=== PATIENT | male | born 1970 | race Caucasian/White ===

== ENCOUNTER → 2016-12-19 | Outpatient (CLI) | payer MEDICARE, OTHER ==
--- NOTE | 2016-12-19 15:19 | PN ---
DATE OF SERVICE: 12/19/2016 A 46-year-old gentleman who has been followed in the Sleep Center for treatment of obstructive sleep apnea-hypopnea syndrome. Patient brought his BiPAP unit with him so I checked the unit. He continued to use his equipment every night, usage from the machine is 30/30 nights for more than 4 hours. Subsequently 100% compliance with treatment. At the same time, sometimes patient feels that this it is not enough pressure in the machine. He significantly increased his weight since previous titration from 369 pounds up to 404 pounds today. Pressure in his machine is 21/17 cm of water. This is the highest BiPAP pressure which has been tried during titration in 2014. [place] Sleepiness Scale significantly increased today to 13. MEDICATIONS: Metoprolol, Januvia, atorvastatin, isosorbide, ibuprofen, aspirin, Ventolin, hydrocodone. During physical exam, a 46-year-old gentleman without distress. BP 129/66, HR 64, RR 16. Height 5, 9. Weight 404. BMI 59.6. Temperature 97.7. Oxygen saturation at room air 98%. Extremely low position of soft palate. ABDOMEN: Obese. EXTREMITIES: 1 to 2+ bilateral ankle edema. IMPRESSION: 1. Extremely severe obstructive sleep apnea-hypopnea syndrome. Apnea-hypopnea index 71.3 with oxygen desaturation to 75.2% REM sleep. Patient is on treatment with BiPAP 21/17 cm of water and increase his weight since titration on around 40 pounds. Sometimes he feels that it is not enough pressure in his machine. He feels sleepy during the day. [place] Sleepiness Scale is 13; 100% compliance with treatment. 2. Obesity, body mass index of 59.6. 3. Asthma. 4. Coronary artery disease, status post stent insertion. 5. Hyperlipidemia. 6. Back problem. 7. Status post back surgery. 8. Swelling of legs. PLAN: 1. Repeat BiPAP titration for re-evaluation of effective BiPAP pressure at the present time. Patient is on the high range BiPAP pressure 21/17, but sometimes feels that pressure is not enough and again he increased his weight significantly. 2. Aggressive losing weight program. 3. Sleep hygiene with regular time in bed for at least 8 hours. 4. No driving if feeling any sleepiness. 5. Prescription for all necessary BiPAP supplies, including mask, tube, filters. Thank you very much for allowing me to participate in the management your patient. Sincerely, Julian Painting MD, PhD, FAASM Diplomat of [employer], Sleep Medicine Board by [employer] Fiber Design Engineer of [facility] [place]
== END ==
LOC: SLEEP 13:28
PROVIDERS: ATTEND Internal Medicine
DX: G47.33 Obstructive sleep apnea (adult) (pediatric) (principal); E66.9 Obesity, unspecified; J45.909 Unspecified asthma, uncomplicated; I25.10 Atherosclerotic heart disease of native coronary artery without angina pectoris; Z95.5 Presence of coronary angioplasty implant and graft; Z99.89 Dependence on other enabling machines and devices; Z68.43 Body mass index [BMI] 50.0-59.9, adult; Z79.82 Long term (current) use of aspirin; Z79.899 Other long term (current) drug therapy

== ENCOUNTER → 2017-03-13 | Outpatient (CLI) | payer MEDICARE, OTHER ==
--- NOTE | 2017-03-13 23:16 | PN ---
DATE OF SERVICE: 03/13/2017 This patient is a 46-year-old gentleman who has been followed in the sleep center for treatment of obstructive sleep apnea/hypopnea syndrome. Recently the patient had BiPAP titration, and after that he received a new BiPAP machine. He came for a follow-up visit to check his treatment with that unit. He is able to use the machine every night for the whole night. Sometimes he has a leak from his mask and sometimes he does not feel enough pressure in his mask when he puts the mask on. I checked his BiPAP machine. BiPAP pressure is 21/17 cm of water. Usage is 30 out of 30 nights for more than 4 hours; average 7.8 hours. Leak is high at 71 L/ minute. At the same time, apnea/hypopnea index is only 0.2, which indicates perfect breathing. [place] Sleepiness Scale today is 13. MEDICATIONS: 1. Metoprolol. 2. Januvia. 3. Atorvastatin. 4. Isosorbide. 5. Ibuprofen. 6. Aspirin. 7. Ventolin. 8. Hydrocodone. PHYSICAL EXAM: The patient is a pleasant 46-year-old gentleman without distress, using a wheelchair. VITAL SIGNS: Blood pressure 121/98, heart rate 78, respiratory rate 16. Weight 410. Temperature 97.8. Oxygen saturation at room air 96%. GENERAL: A pleasant patient without distress. HEENT: PERRLA. EOMI. Evaluation of oropharynx showed tongue protrudes midline. Extremely low position of soft palate. NECK: Supple. No JVD. Thyroid is not palpable. LUNGS: Clear to percussion and to auscultation. Good air exchange. No wheezing or rhonchi. HEART: S1, S2 regular. No murmurs, gallops or rubs. ABDOMEN: Obese. EXTREMITIES: One plus ankle edema. PRESSURE SUPERVISOR: Awake, alert and oriented x3. There is no fasciculation or atrophy noted. No focal deficits observed. IMPRESSION: 1. Obstructive sleep apnea/hypopnea syndrome. Patient demonstrated 100% compliance with treatment, benefitting from treatment with BiPAP. Normal respiration with the BiPAP. Leak from the mask, though, is significant. 2. Obesity. 3. Asthma. 4. Coronary artery disease, status post stent insertion. 5. Hyperlipidemia. 6. Back problems. 7. Status post back surgery. 8. Swelling of the legs. 9. Very minimal periodic limb movements. PLAN: 1. Continue treatment with BiPAP every night for the while night with the same pressure. 2. Aggressive losing-weight program. 3. We will try AmaraView full-face mask. 4. Sleep hygiene with regular time in bed for at least 8 hours. 5. No driving if feeling any sleepiness. Thank you very much for allowing me to participate in the management of your patient. Sincerely, Julian Painting. , PhD, FAASM. Diplomat of [employer], Sleep Medicine Board by [employer] of Internal Medicine Director Corporate of [facility] [place] [facility]
== END | disposition home or self-care (01) ==
LOC: SLEEP 14:37
PROVIDERS: ATTEND Internal Medicine
DX: G47.33 Obstructive sleep apnea (adult) (pediatric) (principal); E66.9 Obesity, unspecified; J45.909 Unspecified asthma, uncomplicated; I25.10 Atherosclerotic heart disease of native coronary artery without angina pectoris; E78.5 Hyperlipidemia, unspecified; M79.89 Other specified soft tissue disorders; G47.61 Periodic limb movement disorder

== ENCOUNTER → 2017-06-26 | Outpatient (CLI) | payer MEDICARE, OTHER ==
[2017-06-26 11:14] LABS: Basophils % (A) 1 %; CH 27.8; CHCM 31.6; Eosinophils # (A) 0.3 k/uL (0-0.7); Eosinophils % (A) 4 %; HCT 48.5 % (39.0-53.0); HDW 2.18; Luc # (Auto) 0.16; Luc % (Auto) 2; Lymphocytes % (A) 27 %; MCH 27.2 pg (25.0-35.0); MCHC 30.8 g/dL (31.0-37.0); MCV 88.4 fL (80.0-100.0); Mean Platelet Volume 6.4; Monocytes # (A) 0.4 k/uL (0-1.0); Monocytes % (A) 6 %; Neutrophils # (A) 4.5 k/uL (1.3-7.7); Neutrophils % (A) 62 %; RBC 5.49 m/uL (4.30-5.90); RDW 13.2 % (11.5-15.5); WBC 7.4 k/uL (3.8-10.6); WBC (Perox) 7.53
[2017-06-26 11:27] LABS: ALT 49 U/L (21-72); AST 24 U/L (17-59); Alkaline Phosphatase 102 U/L (38-126); Anion Gap 9 mmol/L; Blood Urea Nitrogen 13 mg/dL (9-20); Calcium 9.3 mg/dL (8.4-10.2); Carbon Dioxide 22 mmol/L (22-30); Chloride 106 mmol/L (98-107); Cholesterol 189 mg/dL (<200); Glucose 261 mg/dL (74-99); HDL Cholesterol 34 mg/dL (40-60); Non-African American GFR(MDRD) >60 (>60 ml/min/1.73 sqM); Potassium 4.8 mmol/L (3.5-5.1); Sodium 137 mmol/L (137-145); Total Bilirubin 0.5 mg/dL (0.2-1.3); Total Protein 6.6 g/dL (6.3-8.2)
== END | disposition home or self-care (01) ==
LOC: LABWHC1 10:28
PROVIDERS: ATTEND Family Medicine
DX: E78.5 Hyperlipidemia, unspecified (principal); E11.65 Type 2 diabetes mellitus with hyperglycemia; I10 Essential (primary) hypertension
CPT/HCPCS: 36415; 80053; 80061; 83036; 85025

== ENCOUNTER → 2018-09-25 | Outpatient (CLI) | payer MEDICARE, OTHER ==
[2018-09-25 11:23] LABS: Basophils % (A) 0 %; Eosinophils # (A) 0.3 k/uL (0-0.7); Eosinophils % (A) 3 %; HCT 48.7 % (39.0-53.0); HGB 15.2 gm/dL (13.0-17.5); Lymphocytes # (A) 2.6 k/uL (1.0-4.8); Lymphocytes % (A) 26 %; MCH 27.2 pg (25.0-35.0); MCHC 31.3 g/dL (31.0-37.0); MCV 86.8 fL (80.0-100.0); Mean Platelet Volume 6.4; Monocytes # (A) 0.6 k/uL (0-1.0); Monocytes % (A) 6 %; Neutrophils # (A) 6.6 k/uL (1.3-7.7); Neutrophils % (A) 64 %; Platelet Count 327 k/uL (150-450); RBC 5.61 m/uL (4.30-5.90); RDW 13.9 % (11.5-15.5); WBC 10.3 k/uL (3.8-10.6)
[2018-09-25 16:39] LABS: Albumin/Globulin Ratio 1.74 (1.60-3.17); Anion Gap 5.1 mmol/L (4.00-12.00); Calcium 9.1 mg/dL (8.7-10.3); Carbon Dioxide 25.9 mmol/L (21.6-31.8); Globulin 2.3 g/dL (1.6-3.3); LDL Cholesterol,Calculated 74.4 mg/dL (0.0-131.0); Potassium 5.6 mmol/L (3.5-5.5); Total Bilirubin 0.3 mg/dL (0.3-1.2); Total Protein 6.3 g/dL (6.2-8.2); VLDL Calculation 19.6 mg/dL (5.00-40.00)
== END ==
LOC: LABWHC1 09:56
PROVIDERS: ATTEND Family Medicine
DX: I25.10 Atherosclerotic heart disease of native coronary artery without angina pectoris (principal); E11.9 Type 2 diabetes mellitus without complications; E78.5 Hyperlipidemia, unspecified
CPT/HCPCS: 36415; 80053; 80061; 84443; 85025

== ENCOUNTER → 2019-09-09 | Outpatient (CLI) | payer MEDICARE, OTHER ==
--- NOTE | 2019-09-09 14:48 | SFUN ---
SLEEP CENTER FOLLOW UP NOTE DATE OF SERVICE: 09/09/2019 A 48-year-old gentleman who has been followed in Sleep Center for treatment of obstructive sleep apnea-hypopnea syndrome. Patient continued to use his BiPAP equipment every night, does not snore with the BiPAP, getting his supplies on a regular basis. Last visit was about 2-1/2 years ago. Patient increased his weight around 50 pounds since previous visit. [place] Sleepiness Scale today is 10, which is borderline. I checked BiPAP unit. BiPAP pressure 21/17. Usage is 30/30 nights for more than 4 hours with average usage 8.2 hours per night, which is great compliance. Leak 44 L/minute which is slightly high for a full-face mask. Apnea-hypopnea index only 0.3, which is absolutely perfect. MEDICATIONS: Hydrocodone, isosorbide, Januvia, aspirin, NovoLog, metoprolol, atorvastatin and also Ventolin. PHYSICAL EXAM: Patient in no distress, BP 157/93, HR 76, RR about 18, height 5, 10 inches, weight 460.2, body mass index 66.1, temperature 97.7, oxygen saturation at room air 95%. OROPHARYNX: Extremely low position of soft palate, Mallampati 4. ABDOMEN: Obese. NECK: Supple, no JVD. Thyroid is not palpable. LUNGS: Clear to percussion and to auscultation. Good air exchange. No wheezing or rhonchi. HEART: S1, S2 regular. No murmurs, gallops, or rubs. EXTREMITIES: No clubbing or cyanosis. GEOLOGIST: Awake, alert, and oriented X3. Cranial nerves 2 to 7 intact. There is no fasciculation or atrophy. noted. No focal deficits observed. IMPRESSION: 1. Obstructive sleep apnea-hypopnea syndrome. Patient demonstrated 100% compliance with treatment, benefitting with treatment, normal apnea-hypopnea index reading from the machine. 2. Obesity, patient increased his weight on about 50 pounds comparing with the previous visit, but again as I mentioned above, respiration is under control with the machine. 3. Asthma. 4. Coronary artery disease, status post stent insertion. 5. Hyperlipidemia. 6. Back problems. 7. Status post back surgery. 8. Bilateral ankle edema. 9. Diabetes mellitus. PLAN: 1. Patient will continue to use BiPAP equipment every night for the whole night with a pressure of 21/17 cm of water. 2. Aggressive losing weight program. 3. Prescription for all necessary CPAP supplies including Simplex large full- face mask, heated tubes, filters. 4. Precautions related to driving. No driving if feeling sleepiness. 5. Followup visit in 1 year or earlier if patient has any problems. Thank you very much for allowing me to participate in the management of your patient. Sincerely, Julian Painting MD, PhD, FAASM Diplomat of [employer] of Internal Medicine Textile Science Technician of [facility] [place] MMODL / IJN: [id number] / [facility]
== END | disposition home or self-care (01) ==
LOC: SLEEP 13:31
PROVIDERS: ATTEND Internal Medicine
DX: G47.33 Obstructive sleep apnea (adult) (pediatric) (principal); E66.9 Obesity, unspecified; J45.909 Unspecified asthma, uncomplicated; I25.10 Atherosclerotic heart disease of native coronary artery without angina pectoris; E78.5 Hyperlipidemia, unspecified; R93.89 Abnormal findings on diagnostic imaging of other specified body structures; M25.472 Effusion, left ankle; M25.471 Effusion, right ankle; E11.9 Type 2 diabetes mellitus without complications; Z99.89 Dependence on other enabling machines and devices; Z95.5 Presence of coronary angioplasty implant and graft; Z68.44 Body mass index [BMI] 60.0-69.9, adult; Z79.891 Long term (current) use of opiate analgesic; Z79.82 Long term (current) use of aspirin; Z79.4 Long term (current) use of insulin; Z79.899 Other long term (current) drug therapy

== ENCOUNTER → 2020-09-14 | Outpatient (CLI) | payer MEDICARE, OTHER ==
--- NOTE | 2020-09-14 23:21 | SFUN ---
SLEEP CENTER FOLLOW UP NOTE DATE OF SERVICE: 09/14/2020 49-year-old gentleman has been followed in Sleep Center for treatment of obstructive sleep apnea-hypopnea syndrome. The patient continues to use his CPAP equipment every night without significant problems related to mask fitting, pressure humidification. [place] Sleepiness Scale today although increased to 16. I checked his BiPAP unit. Pressure is 21/17 cm of water. Usage is 29 out of 30 nights for more than 4 hours with average usage is 7.7 hours per night, quite high leak 47 L/minute, but apnea-hypopnea index absolutely perfect only 0.1. MEDICATIONS: Isosorbide, Januvia, aspirin, NovoLog, metoprolol, atorvastatin, Ventolin. PHYSICAL EXAM: Patient in no distress. BP 163/81, HR 79, RR 15, height 5 feet 8-1/2 inches, weight 455 pounds. Temperature 98.2, oxygen saturation at room air 96%. Oropharynx extremely low position of soft palate. Mallampati 4. NECK: Supple, no JVD. Thyroid is not palpable. LUNGS: Clear to percussion and to auscultation. Good air exchange. No wheezing or rhonchi. HEART: S1, S2 regular. No murmurs, gallops, or rubs. ABDOMEN: Obese. Soft and nontender. Bowel sounds are present. No organomegaly appreciated. EXTREMITIES: No clubbing or cyanosis. METAL TEMPERER: Awake, alert, and oriented X3. Cranial nerves 2 to 7 intact. There is no fasciculation or atrophy. noted. No focal deficits observed. IMPRESSION: 1. Obstructive sleep apnea-hypopnea syndrome. Patient demonstrated 100% compliance with treatment, benefitting from treatment. 2. Obesity. 3. Asthma. 4. Coronary artery disease, status post stent insertion. 5. Hyperlipidemia. 6. Back problems. 7. Status post back surgery. 8. Diabetes mellitus. PLAN: 1. Patient will continue to use PAP equipment every night for the whole night. 2. Sleep hygiene with regular time in bed for at least 7-1/2 to 8 hours. 3. Precautions related to driving. No driving if feeling sleepiness. 4. I will maintain all necessary prescription for PAP supplies including mask, tube, filters. 5. Watching weight. 6. No driving if feeling sleepiness. 7. Follow-up visit in 6 months or earlier if patient has any problems. Thank you very much for allowing me to participate in management of your patient. Sincerely, Julian Painting MD, PhD, FAASM Diplomat of [place] [employer] [employer] Medicine Supervisor Of Way of [facility] [place] ESTEPHANIA / MARINO: [id number] /
== END | disposition home or self-care (01) ==
LOC: SLEEP 15:37
PROVIDERS: ATTEND Internal Medicine
DX: G47.33 Obstructive sleep apnea (adult) (pediatric) (principal); E66.9 Obesity, unspecified; J45.909 Unspecified asthma, uncomplicated; E78.5 Hyperlipidemia, unspecified; E11.9 Type 2 diabetes mellitus without complications; I25.10 Atherosclerotic heart disease of native coronary artery without angina pectoris; Z95.5 Presence of coronary angioplasty implant and graft; Z98.890 Other specified postprocedural states; Z79.82 Long term (current) use of aspirin; Z79.899 Other long term (current) drug therapy; Z79.84 Long term (current) use of oral hypoglycemic drugs